=== PATIENT | female | born 1995 | race African-American/Black ===

== ENCOUNTER 2017-03-11 11:30 | Emergency (ER) | payer MEDICAID, OTHER ==
[~2017-03-11] VITALS: Ht 170.2 cm; Wt 89.0 kg
[2017-03-11] MEDS ORDERED: iron (11:39)
[2017-03-11] MEDS ORDERED: ACETAMINOPHEN 500MG TABLET PO ONE (12:00)
[2017-03-11 13:22] VITALS: BP 136/75
== END 2017-03-11 15:13 | disposition home or self-care (01) ==
LOC: ER 12:40
DX: L98.9 Disorder of the skin and subcutaneous tissue, unspecified (principal); F12.90 Cannabis use, unspecified, uncomplicated
CPT/HCPCS: 99283; J7030